=== PATIENT | female | born 1970 | race Hispanic/Latino ===

== ENCOUNTER 2017-04-04 05:40 | Observation (INO) | payer OTHER ==
[~2017-04-04] VITALS: Ht 154.9 cm; Wt 78.9 kg
[~2017-04-04 05:40] MED LIST: NORCO 5-325 TA1 EACH PO; PEPCID40 MG PO; PERCOCET 5-3251 EACH PO; ZOFRAN ODT4 MG PO
--- NOTE | 2017-04-04 09:43 | NUR ---
PT TO FLOOR WITH UDAY Armstrong. PT AWAKE AND HAS FAMILY WITH HER. DAUGHTER SPEAKS UPPER SORBIAN. PT DENIES PAIN ALTHOUGH APPEARS PAINFUL UPON SCOOTING TO BED. D5LR HANGING. DRESSING CDI. SCD'S IN PLACE. DENIES NAUSEA.
--- NOTE | 2017-04-04 10:39 | NUR ---
FAMILY JUST LEFT TO GET SOMETHING TO EAT, WILL BE BACK SHORTLY. PT RESTING WITH EYES CLOSED.
--- NOTE | 2017-04-04 11:26 | NUR ---
PT RESTING WITH EYES CLOSED UNTIL AWOKEN FOR HOURLY VITALS. BP A LITTLE LOW BUT ASYMPTOMATIC. DENIES NAUSEA, PAIN OR DISCOMFORT.
--- NOTE | 2017-04-04 11:38 | NUR ---
PT CALLED FOR A PAIN PILL FOR A HEADACHE. STATES HER STOMACH DOES NOT HURT MUCH.
--- NOTE | 2017-04-04 12:27 | NUR ---
pt up to restroom with 2 person assist. pt painful and given a blanket to brace abdomen. pt voided 600ml yellow urine. able to eat part of lunch. denies nausea.
--- NOTE | 2017-04-04 13:30 | NUR ---
PATIENT RESTING IN BED WITH FAMILY IN ROOM. OFFERED PATIENT A WASH CLOTH FOR FACE. FRESH ICE PACK GIVEN. NO OTHER NEEDS AT THIS TIME.
--- NOTE | 2017-04-04 14:58 | NUR ---
PT DRESSING REMAINS CDI. PT STATES PAIN IS SMALL AND DENIES CONCNERNS. FAMILY IN ROOM.
--- NOTE | 2017-04-04 17:05 | NUR ---
PATIENT TO BATHROOM AND BACK WITH TWO PERSON ASSIST. PATIENT SEEMS TO THINK THAT SHES BLOATED. RN NOTIFIED. PATIENT RATES PAIN AT A 6 OUT OF 10. NO OTHER NEEDS AT THIS TIME. CALL BUTTON IN REACH.
--- NOTE | 2017-04-04 17:52 | NUR ---
PATIENT IN BED VISITING WITH FAMILY. PATIENT STATES THAT SHE'S FEELING MUCH BETTER. FRESH ICE WATER GIVEN NO OTHER NEEDS AT THIS TIME.
--- NOTE | 2017-04-04 17:55 | NUR ---
PT ATE DINNER AND DENIES NAUSEA. PT PAIN BETTER NOW AFTER 1 NORCO.
--- NOTE | 2017-04-04 18:23 | NUR ---
PT HAD GOOD PAIN CONTROL THROUGHOUT SHIFT WITH 1 TAB NORCO X2. FAMILY IN ROOM TO TRANSLATE. DRESSING CDI. 1-2 PERSON ASSIST TO RESTROOM. UO QS.
--- NOTE | 2017-04-04 19:10 | NUR ---
BEDSIDE SHIFT REPORT RECEIVED FROM UDAY WISDOM. PT IS RESTING IN BED, MULTIPLE FAMILY MEMBERS AT BEDSIDE. PT IS TAMAZIGHT-SPEAKING, FAMILY MEMBERS ACTING INTERPRETERS. PT DENIES NAUSEA, STATES SHE ONLY HAS A LITTLE BIT OF PAIN, DECLINING NEED FOR PAIN MEDICATION AT THIS TIME. CALL LIGHT IS WITHIN REACH, WILL CONTINUE TO MONITOR.
--- NOTE | 2017-04-04 21:05 | NUR ---
ASSESSMENT COMPLETED. PT IS ALERT, FAMILY IS NOT IN ROOM AT THIS TIME TO TRANSLATE, USED COMPUTER TO TRANSLATE. PT DENIES PAIN, NEW ICE PACK PROVIDED FOR COMFORT. LUNGS CLEAR, RA. HR REGULAR. BOWEL TONES HYPOACTIVE, DENIES NAUSEA. IV PATENT, INFUSING WNL. DRESSING TO LOWER ABDOMEN IS C/D/I. SCD'S IN PLACE. PT DENIES FURTHER REQUESTS AT THIS TIME, WILL CONTINUE TO MONITOR.
--- NOTE | 2017-04-04 22:35 | NUR ---
IN TO CHECK ON PT, PT'S IS AT BEDSIDE. PT CONTINUES TO DENY PAIN. DENIES REQUESTS AT THIS TIME.
--- NOTE | 2017-04-05 01:02 | NUR ---
PT CALLED AND NEEDED TO USE BATHROOM. UP WITH 1-PA TO BATHROOM, VOIDED, AND THEN RETURNED TO BED. PT IS PAINFUL WITH MOVEMENT. RATES ABDOMINAL PAIN 8/10, 2 TABS NORCO PROVIDED WITH CRACKERS AND PUDDING. PT DENIES FURTHER REQUESTS.
--- NOTE | 2017-04-05 02:03 | NUR ---
CALLED DR. QUINONEZ TO INFORM HIM OF PT'S BP: 85/46 AND HR: 57. PT IS ASYMTPTOMATIC. FOR NOW HE JUST WANTS ME TO CONTINUE TO MONITOR, NO NEW ORDERS RECEIVED AT THIS TIME.
--- NOTE | 2017-04-05 03:47 | NUR ---
CHECKED IN ON PT WHO IS RESTING IN BED. DENIES PAIN AT THIS TIME. DENIES FURTHER REQUESTS.
--- NOTE | 2017-04-05 05:05 | NUR ---
PT SLEPT OFF AND ON. MINIMAL PAIN WHILE AT REST, INCREASES WITH MOVEMENT. PAIN WELL CONTROLLED WITH PRN NORCO. NO NAUSEA. 1-PA TO BATHROOM. DRESSING TO ABDOMEN C/D/I. BOWEL TONES SLIGHTLY HYPOACTIVE. IV PATENT, D5LR @100. DR. QUINONEZ NOTIFIED OF LOW BLOOD PRESSURE (85/49), MONITOR. SCD'S. PT IS [place]-SPEAKING ONLY, FAMILY MEMBERS IN ROOM TRANSLATE.
--- NOTE | 2017-04-05 06:26 | OR ---
[facility] [address], [place] [address] Signed DATE OF OPERATION: 04/04/2017 SURGEON: Ameena Quinonez MD PREOPERATIVE DIAGNOSIS: Incarcerated left lower quadrant ventral incisional hernia (2.5-3 cm). POSTOPERATIVE DIAGNOSIS: Incarcerated left lower quadrant ventral incisional hernia (2.5-3 cm). PROCEDURE: Left lower quadrant ventral incisional herniorrhaphy with intraabdominal Ventralex mesh (8-cm). ESTIMATED BLOOD LOSS: None. INDICATION: Melisa is a 46-year-old female who has had 3 previous C-sections. Her last one being in 2014. She realized she had a painful bulge in her left lower quadrant. She was also having troubles with her gallbladder. We went ahead and performed her gallbladder surgery with a laparoscope. We could see she had approximately 3-5 cm hernia in the left lower quadrant. Because of her body habitus, we were having a hard time feeling the hernia and we were never quite sure if we could reduce that or not on physical exam. I gave Melisa and her daughter a brochure on hernias and we looked at that together in detail. I circled the sections relevant to her. I explained her the difference between a primary suture repair and a mesh repair. She understands and expected intra and postop course. There is risk including, but not limited to bleeding, infection, scarring, change in contour of the skin, damage to bowel, infection of mesh requiring removal, recurrent hernias, and chronic pain. She and her family had expressed understanding and wished to proceed. PROCEDURE NOTE: I met with Melisa, her daughter and her in our preop area. With our nurse in the room, we marked her area appropriately. After this, she was taken into the operating room and placed in the supine position under general endotracheal tube anesthesia. She was given preoperative antibiotics along with subcutaneous heparin. SCDs were utilized. A Mansfield catheter was inserted with return of clear yellow urine. After this, she was prepped and draped in the usual sterile fashion. We utilized her previous transverse Pfannenstiel scar on the left half of the scar. We opened it sharply with a knife and Electronically Signed By: AMEENA QUINONEZ MD 04/05/17 0626 PATIENT NAME: MELISA LINCOLN OPERATIVE REPORT DATE OF : 74 PHYSICIAN: AMEENA QUINONEZ MD REPORT #: [id number] REPORT IS CONFIDENTIAL AND NOT TO BE RELEASED WITHOUT AUTHORIZATION [facility] [address], [place] [address] Signed carried that down through the adipose tissue with the help of a cautery. It took just a few minutes. We found her fascial defect. It is probably 2.5 to 3 cm in diameter. The whole hernia sac was then excised and passed off the field with the help of a cautery. We took a few minutes to take down some adhesions on the left lateral side with the cautery. After this, we placed our 8 cm round Ventralex mesh into the abdomen and we brought it up flush against the posterior abdominal wall. We then closed the fascial defect transversely with the help of a running #1 Prolene suture. Several passes of the suture went through the tab on the mesh to help hold it in place. After this, the tab was cut flush with the fascia and discarded. The wound was then infiltrated local anesthetic. The wound was irrigated and suctioned out until clear. The dermis was then reapproximated with interrupted 3-0 subcuticular Monocryl sutures. The skin edges were reapproximated with a running 6-0 fast absorbing plain gut suture. Dry gauze and tape were then applied. Melisa's Mansfield catheter was then removed without difficulty. She was awakened from her anesthesia, extubated in the OR, and taken into the recovery room in stable condition. Ameena Quinonez MD ALB/MODL /[id number] cc: MD Minal Canseco MD Andrew L Bower, MD Electronically Signed By: AMEENA QUINONEZ MD 04/05/17 0626 PATIENT NAME: MELISA LINCOLN OPERATIVE REPORT DATE OF : 74 PHYSICIAN: AMEENA QUINONEZ MD REPORT #: [id number] REPORT IS CONFIDENTIAL AND NOT TO BE RELEASED WITHOUT AUTHORIZATION
--- NOTE | 2017-04-05 06:38 | NUR ---
DR. QUINONEZ IN TO SEE PT. PER DR. QUINONEZ, OK TO REMOVE DRESSING AND LEAVE IT OFF. INCISION APPEARS WELL-APPROXIMATED, SUTURES INTACT. PT TOLERATED WELL. CONTINUES TO DENY PAIN.
--- NOTE | 2017-04-05 08:00 | NUR ---
CALLED CLINICAL GENETICIST PHONE TO HAVE DISCUSSION TRANLATED TO [place]IZ[place] WITH PATIENT, DISCUSSED PAIN CONTROL, AND FULL BODY ASSESMENT. CHECKED BLOOD PRESSURE, ORDERED BREAKFAST, AND SET PATIENT UP WITH SHOWER. ASSESED INSCISIION, SOME CLEAR DRAINAGE, PATIENT HAD NO QUESTIONS WITH MEDICAITONS, UNDERSTANDS SIDE EFFECTS AND PAIN CONTROL. PLAN TO DISCHARGE THIS MORNING.
[2017-04-05] MEDS ORDERED: KEFLEX500 MG PO (08:06)
[2017-04-05] MEDS ORDERED: NORCO 5-325 TA1 EACH PO (08:17)
[2017-04-05] MEDS ORDERED: MIRALAX17 GM PO (08:19)
--- NOTE | 2017-04-05 09:47 | NUR ---
PT HAS SHOWERED AND IS NOW SITTING UP IN THE CHAIR. DISCHARGE VITALS WERE TAKEN AND PT IS NOW WAITING TO BE TALKED TO BY NURSE AND PHARMACY
--- NOTE | 2017-04-05 10:20 | NUR ---
PHARMACY AND THIS NURSE USED TRANLATE PHONE TO DISCUSS PATIENT DISCHARGE WITH PATIENT AND . PATIENT VERBALIZED UNDERSTANDING OF MEDICAITONS, SIDE EFFECTS, PAIN CONTROL AND IMPORTANCE OF PASSING SOFT STOOL AND NOT STRAINING. PATIENT ALSO VERBALIZED UNDERSTANDING OF S/S OF INFECTION AND SURGICAL SITE CARE, MADE MOTIONS TO THE NURSE TO PAT DRY. PATIENT ABLE TO ASK QUESTIONS. PROVIDED PATIENT WITH FOLLOW UP APPOINTMENT INFORMATION AND SCRIPT FOR NORCO AND MIRALAX. PROVIDED PATIENT EDUCATION PACKET IN MALDIV[place].
== END 2017-04-05 10:40 | disposition home or self-care (01) ==
LOC: DSVR 05:40 → DS 05:40 → DSVR 05:40 → MS 05:40 → EDSTATUS 06:45 → DS 06:45 → DSVR 09:30 → MS 09:30 → DS 10:03 → MS 10:03
PROVIDERS: ADMIT Colon & Rectal Surgery
PROC: 0WUF0JZ Supplement Abdominal Wall with Synthetic Substitute, Open Approach (ICD-10-PCS; principal; 2017-04-04 06:45)
DX: K43.0 Incisional hernia with obstruction, without gangrene (principal); E66.9 Obesity, unspecified; Z68.33 Body mass index [BMI] 33.0-33.9, adult; Z79.891 Long term (current) use of opiate analgesic; Z79.899 Other long term (current) drug therapy
CPT/HCPCS: 00830; 94762; 96372; C1781; G0378; J0690; J1100; J1644; J1885; J2250; J2405; J3010; J7120